=== PATIENT | female | born 1985 | race Caucasian/White ===

== ENCOUNTER 2019-12-05 09:03 | Emergency (ER) | payer OTHER ==
[2019-12-05 09:13] VITALS: RESP 18
--- NOTE | 2019-12-05 09:24 | ED ---
Fever HPI - General Chief Complaint: Fever Stated Complaint: Fever Time Seen by Provider: 12/05/19 09:03 Source: patient, EMS, RN notes reviewed Mode of arrival: EMS Limitations: no limitations - History of Present Illness Initial Comments: This is a 34-year-old female who is currently in treatment at [facility] for alcohol use disorder who is been there 5 days who started developing a fever last night with episodes of nausea vomiting and some diarrhea. She also states she has a frontal headache in her left ear bothers her somewhat she's had a no nproductive cough she does admit that she is a smoker no known exposure to covid-19 Patient have a temperature 102 this morning she did take some ibuprofen at around 8:00 it was registered as afebrile prior to arrival. No other complaints or modifying factors at this time she does state that she started going through withdrawals from alcohol she was using up to a fifth a day of Liquor. MD Complaint: fever, other - Related Data Previous Rx's Medication Instructions Recorded Azithromycin [Zithromax Z-pack] 250 mg PO DIRECTED #6 tab 12/05/19 Allergies Allergy/AdvReac Type Severity Reaction Status Date / Time Penicillins Allergy Rash/Hives Verified 12/05/19 09:14 Review of Systems ROS Statement: Those systems with pertinent positive or pertinent negative responses have been documented in the HPI. ROS Other: All systems not noted in ROS Statement are negative. Past Medical History Past Medical History: Asthma History of Any Multi-Drug Resistant Organisms: None Reported Past Surgical History: Section, Tonsillectomy Past Psychological History: Anxiety, Depression, Schizophrenia Smoking Status: Current every day smoker Past Alcohol Use History: Abuse, Daily Past Drug Use History: Cocaine General Exam - General Exam Comments Initial Comments: This a well-developed well-nourished awake alert oriented 3 female Limitations: no limitations General appearance: alert, in no apparent distress Head exam: Present: atraumatic, normocephalic, normal inspection Eye exam: Present: normal appearance, PERRL, EOMI. Absent: scleral icterus, conjunctival injection, periorbital swelling ENT exam: Present: mucous membranes moist, other (Boggy nasal mucosa bilaterally no overt drainage. Left tympanic membrane is dull with evidence of fluid behind the membrane there is tenderness to percussion over the frontal sinus region.) Neck exam: Present: normal inspection. Absent: tenderness, meningismus, lymphadenopathy Respiratory exam: Present: normal lung sounds bilaterally. Absent: respiratory distress, wheezes, rales, rhonchi, stridor Cardiovascular Exam: Present: regular rate, normal rhythm, normal heart sounds. Absent: systolic murmur, diastolic murmur, rubs, gallop, clicks GI/Abdominal exam: Present: soft, normal bowel sounds. Absent: distended, tenderness, guarding, rebound, rigid Extremities exam: Present: normal inspection, full ROM, normal capillary refill. Absent: tenderness, pedal edema, joint swelling, calf tenderness Back exam: Present: normal inspection Neurological exam: Present: alert, oriented X3, CN II-XII intact Psychiatric exam: Present: normal affect, normal mood Skin exam: Present: warm, dry, intact, normal color. Absent: rash Course Vital Signs 12/05/19 09:04 Temperature 98.2 F Pulse Rate 71 Respiratory 18 Rate Blood Pressure 109/72 O2 Sat by Pulse 99 Oximetry Medical Decision Making - Medical Decision Making I did discuss findings with the patient the presentation is consistent with a frontal sinusitis and otitis media left ear. She does state that she was tested at the facility 5 days ago and was negative for Covid-19. Patient will be placed on appropriate medication she is pen ALLERGIC. She'll be placed on azithromycin. - Lab Data Result diagrams: 12/05/19 09:57 12/05/19 09:57 Lab Results 12/05/19 12/05/19 12/05/19 Range/Units 09:30 09:35 09:57 WBC 6.3 (3.8-10.6) k/uL RBC 4.66 (3.80-5.40) m/uL Hgb 14.6 (11.4-16.0) gm/dL Hct 44.3 (34.0-46.0) % MCV 95.2 (80.0-100.0) fL MCH 31.3 (25.0-35.0) pg MCHC 32.9 (31.0-37.0) g/dL RDW 13.6 (11.5-15.5) % Plt Count 325 (150-450) k/uL Neutrophils % 60 % Lymphocytes % 29 % Monocytes % 5 % Eosinophils % 3 % Basophils % 0 % Neutrophils # 3.8 (1.3-7.7) k/uL Lymphocytes # 1.8 (1.0-4.8) k/uL Monocytes # 0.3 (0-1.0) k/uL Eosinophils # 0.2 (0-0.7) k/uL Basophils # 0.0 (0-0.2) k/uL Sodium (137-145) mmol/L Potassium (3.5-5.1) mmol/L Chloride (98-107) mmol/L Carbon Dioxide (22-30) mmol/L Anion Gap mmol/L BUN (7-17) mg/dL Creatinine (0.52-1.04) mg/dL Est GFR (CKD-EPI)AfAm (>60 ml/min/1.73 sqM) Est GFR (CKD-EPI)NonAf (>60 ml/min/1.73 sqM) Glucose (74-99) mg/dL Calcium (8.4-10.2) mg/dL Total Bilirubin (0.2-1.3) mg/dL AST (14-36) U/L ALT (4-34) U/L Alkaline Phosphatase (38-126) U/L Total Protein (6.3-8.2) g/dL Albumin (3.5-5.0) g/dL Urine Color Yellow Urine Appearance Cloudy H (Clear) Urine pH 6.5 (5.0-8.0) Ur Specific [place] 1.018 (1.001-1.035) Urine Protein Negative (Negative) Urine Glucose (UA) Negative (Negative) Urine Ketones Negative (Negative) Urine Blood Trace H (Negative) Urine Nitrite Negative (Negative) Urine Bilirubin Negative (Negative) Urine Urobilinogen <2.0 (<2.0) mg/dL Ur Leukocyte Esterase Negative (Negative) Urine RBC 1 (0-5) /hpf Urine WBC 1 (0-5) /hpf Ur Squamous Epith Cells 12 H (0-4) /hpf Urine Bacteria Rare H (None) /hpf Hyaline Casts 1 (0-2) /lpf Urine Mucus Rare H (None) /hpf Influenza Type A RNA Not Detected (Not Detectd) Influenza Type B (PCR) Not Detected (Not Detectd) 12/05/19 Range/Units 09:57 WBC (3.8-10.6) k/uL RBC (3.80-5.40) m/uL Hgb (11.4-16.0) gm/dL Hct (34.0-46.0) % MCV (80.0-100.0) fL MCH (25.0-35.0) pg MCHC (31.0-37.0) g/dL RDW (11.5-15.5) % Plt Count (150-450) k/uL Neutrophils % % Lymphocytes % % Monocytes % % Eosinophils % % Basophils % % Neutrophils # (1.3-7.7) k/uL Lymphocytes # (1.0-4.8) k/uL Monocytes # (0-1.0) k/uL Eosinophils # (0-0.7) k/uL Basophils # (0-0.2) k/uL Sodium 137 (137-145) mmol/L Potassium 5.2 H (3.5-5.1) mmol/L Chloride 105 (98-107) mmol/L Carbon Dioxide 27 (22-30) mmol/L Anion Gap 5 mmol/L BUN 19 H (7-17) mg/dL Creatinine 1.18 H (0.52-1.04) mg/dL Est GFR (CKD-EPI)AfAm 69 (>60 ml/min/1.73 sqM) Est GFR (CKD-EPI)NonAf 60 (>60 ml/min/1.73 sqM) Glucose 86 (74-99) mg/dL Calcium 9.1 (8.4-10.2) mg/dL Total Bilirubin 0.2 (0.2-1.3) mg/dL AST 24 (14-36) U/L ALT 13 (4-34) U/L Alkaline Phosphatase 51 (38-126) U/L Total Protein 6.8 (6.3-8.2) g/dL Albumin 3.7 (3.5-5.0) g/dL Urine Color Urine Appearance (Clear) Urine pH (5.0-8.0) Ur Specific [place] (1.001-1.035) Urine Protein (Negative) Urine Glucose (UA) (Negative) Urine Ketones (Negative) Urine Blood (Negative) Urine Nitrite (Negative) Urine Bilirubin (Negative) Urine Urobilinogen (<2.0) mg/dL Ur Leukocyte Esterase (Negative) Urine RBC (0-5) /hpf Urine WBC (0-5) /hpf Ur Squamous Epith Cells (0-4) /hpf Urine Bacteria (None) /hpf Hyaline Casts (0-2) /lpf Urine Mucus (None) /hpf Influenza Type A RNA (Not Detectd) Influenza Type B (PCR) (Not Detectd) - Radiology Data Radiology results: report reviewed, image reviewed Disposition Clinical Impression: Acute frontal sinusitis, Otitis media of left ear, Febrile illness, acute Disposition: HOME SELF-CARE Condition: Good Instructions (If sedation given, give patient instructions): Fever in Adults (ED), Sinusitis (ED), Ear Infection (ED) Prescriptions: Azithromycin [Zithromax Z-pack] 250 mg PO DIRECTED #6 tab Is patient prescribed a controlled substance at d/c from ED?: No Referrals: Mar Sandoval MD [Primary Care Provider] - 1-2 days
[2019-12-05 09:55] LABS: Appearance,Urine Cloudy (Clear); Bacteria,Urine Rare /hpf; Bilirubin,Urine Negative (Negative); Blood,Urine Trace (Negative); Color,Urine Yellow; Glucose,Urine (UA) Negative (Negative); Hyaline Casts,Urine 1 /lpf (0-2); Ketones,Urine Negative (Negative); Leukocyte Esterase,Urine Negative (Negative); Mucus,Urine Rare /hpf; Nitrite,Urine Negative (Negative); PH, Urine 6.5 (5.0-8.0); Protein,Urine Negative (Negative); RBC,Urine 1 /hpf (0-5); Specific Gravity,Urine 1.018 (1.001-1.035); Squamous Epithelial Cell,Urine 12 /hpf (0-4); Urobilinogen,Urine <2.0 mg/dL (<2.0); WBC,Urine 1 /hpf (0-5)
[2019-12-05 10:24] LABS: Basophils % (A) 0 %; Eosinophils # (A) 0.2 k/uL (0-0.7); Eosinophils % (A) 3 %; HCT 44.3 % (34.0-46.0); HGB 14.6 gm/dL (11.4-16.0); Lymphocytes # (A) 1.8 k/uL (1.0-4.8); Lymphocytes % (A) 29 %; MCH 31.3 pg (25.0-35.0); MCHC 32.9 g/dL (31.0-37.0); MCV 95.2 fL (80.0-100.0); Mean Platelet Volume 6.6; Monocytes # (A) 0.3 k/uL (0-1.0); Monocytes % (A) 5 %; Neutrophils # (A) 3.8 k/uL (1.3-7.7); Neutrophils % (A) 60 %; Platelet Count 325 k/uL (150-450); RBC 4.66 m/uL (3.80-5.40); RDW 13.6 % (11.5-15.5); WBC 6.3 k/uL (3.8-10.6)
--- NOTE | 2019-12-05 10:30 | XR ---
EXAMINATION TYPE: XR chest 2V DATE OF EXAM: 12/05/2019 COMPARISON: NONE HISTORY: Fever TECHNIQUE: Frontal and lateral views of the chest are obtained. FINDINGS: There is no focal air space opacity, pleural effusion, or pneumothorax seen. The cardiac silhouette size is within normal limits. The osseous structures are intact. IMPRESSION: No acute cardiopulmonary process.
[2019-12-05 10:34] LABS: Albumin 3.7 g/dL (3.5-5.0); Calcium 9.1 mg/dL (8.4-10.2); Potassium 5.2 mmol/L (3.5-5.1); Total Bilirubin 0.2 mg/dL (0.2-1.3); Total Protein 6.8 g/dL (6.3-8.2)
[2019-12-05] MEDS ORDERED: AZITHROMYCIN 500 MG TAB PO STA (10:47)
[2019-12-05 10:58] VITALS: BP 117/86; PULSE 77; TEMP 98
== END 2019-12-05 11:21 | disposition home or self-care (01) ==
LOC: EC 09:03
DX: H66.92 Otitis media, unspecified, left ear (principal); J01.10 Acute frontal sinusitis, unspecified; Z20.828 Contact with and (suspected) exposure to other viral communicable diseases; F17.200 Nicotine dependence, unspecified, uncomplicated; Z88.0 Allergy status to penicillin
CPT/HCPCS: 36415; 80053; 85025; 81001; 87040; 87502; 71046; 99284; U0003

== ENCOUNTER → 2020-02-05 | Outpatient (CLI) | payer OTHER ==
--- NOTE | 2020-02-05 14:11 | CT ---
EXAMINATION TYPE: CT brain wo con DATE OF EXAM: 02/05/2020 COMPARISON: NONE HISTORY: Left ear pain, recurrent infections. Hearing loss. CT DLP: 1036 mGycm Automated exposure control for dose reduction was used. FINDINGS: Central structures are midline. There is no evidence hydrocephalus. No acute focal lesion, mass effec t or midline shift is seen. I do not see evidence of intracranial blood. Visualized portions of the paranasal sinuses and mastoids are clear. Imaging through the middle ears shows no definite abnormality the ossicles are intact. IMPRESSION: NO ACUTE INTRACRANIAL ABNORMALITY.
== END | disposition home or self-care (01) ==
LOC: RADCTMAIN 13:01
PROVIDERS: ATTEND Family Medicine
DX: H92.02 Otalgia, left ear (principal); Z86.69 Personal history of other diseases of the nervous system and sense organs
CPT/HCPCS: 70450

== ENCOUNTER 2020-09-30 15:01 | Emergency (ER) | payer OTHER ==
[2020-09-30 15:07] VITALS: BP 141/77; PULSE 89; RESP 18; TEMP 97.6
[2020-09-30] MEDS ORDERED: KETOROLAC 15 MG/ML 1 ML VIAL IM STA (15:36)
--- NOTE | 2020-09-30 16:06 | XR ---
RESULT: HISTORY: fall x 3 days ago, pain TECHNIQUE: AP view of the pelvis. 2 views of the left hip. COMPARISON: None. FINDINGS: There is no acute fracture or dislocation of the pelvis or left hip. The visualized joint spaces are preserved. Overlying IUD seen. IMPRESSION: No acute osseous abnormality.
--- NOTE | 2020-09-30 16:07 | XR ---
Result: History: Low back pain status post fall. Comparison: None available. Technique: 3 views of the lumbar spine. Findings: The bone mineralization is normal. Images of the lumbar spine demonstrate 5 lumbar-type vertebrae. There is no acute fracture or sublux ation. The vertebral body heights are preserved throughout the imaged lumbar spine. The vertebral e lements are in anatomic alignment. The disc heights are maintained. Impression: No significant osseous abnormality.
--- NOTE | 2020-09-30 16:15 | ED ---
Lower Extremity Injury HPI - General Source: patient Mode of arrival: ambulatory Limitations: no limitations <Juani Calderon - Last Filed: 09/30/20 22:30> <Valeri Gross - Last Filed: 10/02/20 14:53> - General Chief Complaint: Extremity Injury, Lower Stated Complaint: Lt Hip Pain Time Seen by Provider: 09/30/20 15:17 - History of Present Illness Initial Comments: Patient is a 35-year-old female presenting to the emergency Department with complaints of left hip and low back pain for the past 3 days. Patient states she had a trip and fall and landed on her left hip. She states over the past 3 days she's been having increasing pain in her left low back. She states it hurts to sit. She denies any previous surgeries of these areas. She denies her being on blood thinners. She denies being . She has no further complaints at this time. (Juani Calderon) - Related Data Previous Rx's Medication Instructions Recorded Azithromycin [Zithromax Z-pack] 250 mg PO DIRECTED #6 tab 12/05/19 Cyclobenzaprine [Flexeril] 5 mg PO BID #10 tablet 09/30/20 Allergies Allergy/AdvReac Type Severity Reaction Status Date / Time Penicillins Allergy Rash/Hives Verified 09/30/20 15:07 Review of Systems ROS Other: All systems not noted in ROS Statement are negative. <Juani Calderon - Last Filed: 09/30/20 22:30> ROS Other: All systems not noted in ROS Statement are negative. <Valeri Gross - Last Filed: 10/02/20 14:53> ROS Statement: Those systems with pertinent positive or pertinent negative responses have been documented in the HPI. Past Medical History Past Medical History: Asthma History of Any Multi-Drug Resistant Organisms: None Reported Past Surgical History: Section, Tonsillectomy Past Psychological History: Anxiety, Depression, Schizophrenia Smoking Status: Former smoker Past Alcohol Use History: None Reported Past Drug Use History: Cocaine <Juani Calderon - Last Filed: 09/30/20 22:30> General Exam Limitations: no limitations <Juani Calderon - Last Filed: 09/30/20 22:30> - General Exam Comments Initial Comments: GENERAL: Patient is well-developed and well-nourished. Patient is nontoxic and in no acute distress. HEAD: Atraumatic, normocephalic. EYES: Pupils equal round and reactive to light, extraocular movements intact, sclera anicteric, conjunctiva are normal. Eyelids were unremarkable. ENT: TMs normal, nares patent, oropharynx clear without exudates. Moist mucous membranes. NECK: Normal range of motion, supple without lymphadenopathy or JVD. LUNGS: Unlabored respirations. Breath sounds clear to auscultation bilaterally and equal. No wheezes rales or rhonchi. HEART: Regular rate and rhythm without murmurs, rubs or gallops. ABDOMEN: Soft, nontender, normoactive bowel sounds. No guarding, no rebound. No masses appreciated. : Deferred MUSCULOSKELETAL: Patient has increased pain with trunk flexion and hip flexion, she does have full active range of motion although. She is neurovascular intact. Sensation is equal bilateral lower extremities. No clubbing or cyanosis. NEUROLOGICAL: Patient is alert and oriented x 3. Motor and sensory are also intact. Cranial nerves II through XII grossly intact. Symmetrical smile. Normal speech, normal gait. PSYCH: Normal mood, normal affect. SKIN: Warm, Dry, normal turgor, no rashes or lesions noted. (Juani Calderon) Course Vital Signs 09/30/20 15:04 Temperature 97.6 F Pulse Rate 89 Respiratory 18 Rate Blood Pressure 141/77 O2 Sat by Pulse 96 Oximetry Medical Decision Making <Juani Calderon - Last Filed: 09/30/20 22:30> <Valeri Gross - Last Filed: 10/02/20 14:53> - Medical Decision Making Patient is a 35-year-old female here for left hip pain after falling 3 days ago. X-rays of the left hip, pelvis, low back revealed no acute fractures dislocations. I discussed with patient this is most likely a contusion with some muscle spasms. I did give her Toradol here today. I will give her prescription for some muscle relaxers and recommended Tylenol and Motrin as well. Patient is stable for discharge. Patient is in agreement with this plan of care. Return parameters were discussed with the patient and they verbalized understanding. Case discussed with Dr. Gross. (Juani Calderon) I was available for consultation in the emergency department. The history and physical exam were done by the midlevel provider. I was consulted for this patients care. I reviewed the case with the midlevel provider and based on their presentation of the patient, I agree with the assessment, medical decision making and plan of care as documented. Chart was dictated using [employer] dictation software. Attempts were made to correct any dictation errors however some typographical errors may persist. Patient was seen during a national state of emergency due to the Covid-19 pandemic. (Valeri Gross) Disposition Is patient prescribed a controlled substance at d/c from ED?: No <Juani Calderon - Last Filed: 09/30/20 22:30> <Valeri Gross - Last Filed: 10/02/20 14:53> Clinical Impression: Contusion of hip, left, Spasm of muscle of lower back Disposition: HOME SELF-CARE Condition: Stable Instructions (If sedation given, give patient instructions): Muscle Spasm (ED) Additional Instructions: Please return to the Emergency Department if symptoms worsen or any other concerns. Command heat to the area, Tylenol and/or Motrin alternating. May take muscle relaxer at night. Follow-up with your regular doctor. Prescriptions: Cyclobenzaprine [Flexeril] 5 mg PO BID #10 tablet Referrals: [facility] [Primary Care Provider] - 1-2 days
== END 2020-09-30 16:35 | disposition home or self-care (01) ==
LOC: EC 15:01
DX: S70.02XA Contusion of left hip, initial encounter (principal); M62.830 Muscle spasm of back; Z87.891 Personal history of nicotine dependence; F41.9 Anxiety disorder, unspecified; F32.9 Major depressive disorder, single episode, unspecified; F20.9 Schizophrenia, unspecified; J45.909 Unspecified asthma, uncomplicated; W01.0XXA Fall on same level from slipping, tripping and stumbling without subsequent striking against object, initial encounter
CPT/HCPCS: 72100; 73502; 99284; 96372; J1885

== ENCOUNTER 2020-10-06 02:09 | Emergency (ER) | payer OTHER ==
[2020-10-06 02:23] VITALS: BP 109/73; PULSE 77; RESP 16; TEMP 98.6
[2020-10-06] MEDS ORDERED: Acetaminophen-Codeine 300-30mg TAB PO STA (02:50)
[2020-10-06] MEDS ORDERED: ACET/COD 300 MG/30 MG STARTER PACK 6 TAB BTL PO STA (02:50)
--- NOTE | 2020-10-06 02:52 | ED ---
General Adult HPI - General Chief complaint: Recheck/Abnormal Lab/Rx Stated complaint: Recheck left hip Time Seen by Provider: 10/06/20 02:30 Source: patient, RN notes reviewed, old records reviewed Mode of arrival: ambulatory Limitations: no limitations - History of Present Illness Initial comments: This is a 35-year-old female DF status post fall fall week ago. Patient has severe left back pain left leg pain left hip pain. Patient is chronic pain from prior fall. Patient states the pain is currently unable to work. Patient here for work note -: days(s) Location: pelvis Radiation: back Severity scale (1-10): 7 Quality: aching Consistency: constant Improves with: none Worsens with: none Associated Symptoms: denies other symptoms Treatments Prior to Arrival: none - Related Data Previous Rx's Medication Instructions Recorded Azithromycin [Zithromax Z-pack] 250 mg PO DIRECTED #6 tab 12/05/19 Cyclobenzaprine [Flexeril] 5 mg PO BID #10 tablet 09/30/20 Allergies Allergy/AdvReac Type Severity Reaction Status Date / Time Penicillins Allergy Rash/Hives Verified 10/06/20 02:20 Review of Systems ROS Statement: Those systems with pertinent positive or pertinent negative responses have been documented in the HPI. ROS Other: All systems not noted in ROS Statement are negative. Past Medical History Past Medical History: Asthma History of Any Multi-Drug Resistant Organisms: None Reported Past Surgical History: Section, Tonsillectomy Past Psychological History: Anxiety, Depression, Schizophrenia Smoking Status: Former smoker Past Alcohol Use History: None Reported Past Drug Use History: Cocaine General Exam Limitations: no limitations General appearance: alert, in no apparent distress Head exam: Present: atraumatic, normocephalic, normal inspection Eye exam: Present: normal appearance, PERRL, EOMI. Absent: scleral icterus, conjunctival injection, periorbital swelling ENT exam: Present: normal exam, mucous membranes moist Neck exam: Present: normal inspection. Absent: tenderness, meningismus, lymphadenopathy Respiratory exam: Present: normal lung sounds bilaterally. Absent: respiratory distress, wheezes, rales, rhonchi, stridor Cardiovascular Exam: Present: regular rate, normal rhythm, normal heart sounds. Absent: systolic murmur, diastolic murmur, rubs, gallop, clicks GI/Abdominal exam: Present: soft, normal bowel sounds. Absent: distended, tenderness, guarding, rebound, rigid Extremities exam: Present: normal inspection, full ROM, normal capillary refill. Absent: tenderness, pedal edema, joint swelling, calf tenderness Back exam: Present: normal inspection Neurological exam: Present: alert, oriented X3, CN II-XII intact Psychiatric exam: Present: normal affect, normal mood Skin exam: Present: warm, dry, intact, normal color. Absent: rash Course Vital Signs 10/06/20 02:20 Temperature 98.6 F Pulse Rate 77 Respiratory 16 Rate Blood Pressure 109/73 O2 Sat by Pulse 100 Oximetry - Reevaluation(s) Reevaluation #1: 10/06/20 02:51 Medical record is reviewed Reevaluation #2: 10/06/20 02:51 Prior ER visit is reviewed Reevaluation #3: 10/06/20 02:51 Patient given a work note and pain control Medical Decision Making - Medical Decision Making 35 female status post trip and fall, patient is work note pain meds. Patient can be discharged home Disposition Clinical Impression: Contusion of hip, left, Encounter for medication refill Disposition: HOME SELF-CARE Condition: Good Instructions (If sedation given, give patient instructions): Contusion in Adults (ED) Is patient prescribed a controlled substance at d/c from ED?: No Referrals: [facility] [Primary Care Provider] - 1-2 days
== END 2020-10-06 03:15 | disposition home or self-care (01) ==
LOC: EC 02:09
DX: S70.02XA Contusion of left hip, initial encounter (principal); Z76.0 Encounter for issue of repeat prescription; M54.9 Dorsalgia, unspecified; F41.9 Anxiety disorder, unspecified; F32.9 Major depressive disorder, single episode, unspecified; F20.9 Schizophrenia, unspecified; J45.909 Unspecified asthma, uncomplicated; Z87.891 Personal history of nicotine dependence; Z88.0 Allergy status to penicillin; W01.0XXA Fall on same level from slipping, tripping and stumbling without subsequent striking against object, initial encounter
CPT/HCPCS: 99283

== ENCOUNTER 2024-12-29 10:18 | Observation (INO) | payer BC, OTHER ==
[2024-12-29] MEDS: NITROGLYCERIN SL TABS 0.4 MG TAB SUBLINGUAL STA (10:48)
[2024-12-29] MEDS: KETOROLAC 15 MG/ML 1 ML VIAL IVP STA ×2 (10:49→13:22)
--- NOTE | 2024-12-29 11:07 | XR ---
EXAMINATION TYPE: XR chest 2V DATE OF EXAM: 12/29/2024 11:04 AM COMPARISON: 09/16/2022 CLINICAL INDICATION: Female, 39 years old with history of Chest Pain, TECHNIQUE: XR chest 2V view(s) obtained. FINDINGS: The heart size is normal. The pulmonary vasculature is normal. The lungs are clear. IMPRESSION: 1. No acute pulmonary process. [facility], , 12/29/2024 11:05 AM
[2024-12-29 11:10] LABS: Basophils # (A) 0.06 10*3/uL (0.00-0.10); Basophils % (A) 0.7 %; Eosinophils # (A) 0.12 10*3/uL (0.04-0.35); Eosinophils % (A) 1.5 %; HCT 41.5 % (37.2-46.3); HGB 13.7 g/dL (12.0-15.0); Lymphocytes # (A) 2.76 10*3/uL (0.90-5.00); Lymphocytes % (A) 34.4 %; MCH 29.4 pg (27.0-32.0); MCV 89.1 fL (80.0-97.0); Mean Platelet Volume 9.2 fL (9.5-12.2); Monocytes % (A) 6.2 %; Neutrophils # (A) 4.56 10*3/uL (1.80-7.70); Neutrophils % (A) 56.8 %; Platelet Count 367 10*3/uL (140-440); RBC 4.66 10*6/uL (4.10-5.20); RDW 13.2 % (11.5-14.5); WBC 8.03 10*3/uL (4.50-10.00)
[2024-12-29 11:19] LABS: ALT 38 U/L (4-34); AST 31 U/L (14-36); African American GFR (CKD) >90 (>60 ml/min/1.73 sqM); Albumin 3.9 g/dL (3.5-5.0); Alkaline Phosphatase 124 U/L (38-126); Anion Gap 8 mmol/L; Blood Urea Nitrogen 14 mg/dL (7-17); Calcium 9.7 mg/dL (8.4-10.2); Carbon Dioxide 27 mmol/L (22-30); Chloride 104 mmol/L (98-107); Glucose 97 mg/dL (74-99); Magnesium 1.7 mg/dL (1.6-2.3); Non-African American GFR(CKD) 90 (>60 ml/min/1.73 sqM); Potassium 4.5 mmol/L (3.5-5.1); Sodium 139 mmol/L (137-145); Total Bilirubin 0.3 mg/dL (0.2-1.3); Total Protein 7.2 g/dL (6.3-8.2)
[2024-12-29 11:27] LABS: INR 0.9 (<1.2); NT-Pro-B-Type Natriuretic Pept 146 pg/mL; Partial Thromboplastin Time 25.5 sec (22.0-30.0); Prothrombin Time 10.1 sec (10.0-12.5)
--- NOTE | 2024-12-29 12:25 | ED ---
Chest Pain HPI - General Chief Complaint: Chest Pain Stated Complaint: Chest Pain Time Seen by Provider: 12/29/24 10:21 Source: patient, EMS, RN notes reviewed Mode of arrival: EMS Limitations: no limitations - History of Present Illness Initial Comments: 39-year-old female presents emerged part via EMS from [place] as she has been poorly there with chief complaint of chest pain. Patient states that she has been having some ongoing chest pain which seem to worsen today with exertional symptoms. Patient states she is scheduled see cardiology tomorrow she has left-sided chest pain into the back. Patient states she has symptoms that radiate down her left arm she does admit that she states that she had a prior heart attack with no stent placement had a prior heart cath Desmet hypertension hyperlipidemia and is medication noncompliant. Patient states she is taking current psychiatric medications. Denies any nausea vomiting denies fevers or chills does with mild shortness of breath. - Related Data Home Medications Medication Instructions Recorded Confirmed Aripiprazole Lauroxil [Aristada] 882 mg IM Q28D 09/16/22 09/16/22 Atorvastatin [Lipitor] 10 mg PO HS 09/16/22 09/16/22 Benztropine Mesylate [Cogentin] 1 mg PO BID PRN 09/16/22 09/16/22 Butalb/Acetaminophen/Caffeine 1 tab PO DAILY PRN 09/16/22 09/16/22 [Ukeehj-Ukuqbllf-Enmr 50-325-40] Fluticasone Nasal [place] [Flonase 1 spray EA NOSTRIL DAILY 09/16/22 09/16/22 Nas[place]] Ibuprofen [Motrin] 600 mg PO BID PRN 09/16/22 09/16/22 Loratadine [Claritin] 10 mg PO DAILY 09/16/22 09/16/22 Montelukast [Singulair] 10 mg PO HS 09/16/22 09/16/22 Naltrexone Microspheres [Vivitrol] 380 mg IM Q28D 09/16/22 09/16/22 Sertraline [Zoloft] 200 mg PO DAILY 09/16/22 09/16/22 busPIRone HCL [Buspar] 30 mg PO BID 09/16/22 09/16/22 lamoTRIgine [LaMICtal] 100 mg PO BID 09/16/22 09/16/22 traZODone HCL [Desyrel] 25 mg PO HS 09/16/22 09/16/22 Allergies Allergy/AdvReac Type Severity Reaction Status Date / Time Penicillins Allergy Rash/Hives/throat Verified 12/29/24 10:24 swelling Review of Systems ROS Statement: Those systems with pertinent positive or pertinent negative responses have been documented in the HPI. ROS Other: All systems not noted in ROS Statement are negative. EKG Findings - EKG Comments: EKG Findings:: EKG performed at 10: 24 sinus rhythm rate of 66 PA 160 QRS 86 QT/QTc 3 9/413 inverted T wave in lead III. - EKG Results: EKG: interpreted by [facility] Past Medical History Past Medical History: Asthma, Hyperlipidemia, Hypertension, Myocardial Infarction ([place]) Additional Past Medical History / Comment(s): heart murmur at . History of Any Multi-Drug Resistant Organisms: None Reported Past Surgical History: Section, Hysterectomy, Tonsillectomy Additional Past Surgical History / Comment(s): complete hysterectomy Past Psychological History: Anxiety, Depression, Schizophrenia Smoking Status: Former smoker Past Alcohol Use History: None Reported Past Drug Use History: Cocaine General Exam Limitations: no limitations General appearance: alert, in no apparent distress Head exam: Present: atraumatic, normocephalic, normal inspection Eye exam: Present: normal appearance, PERRL, EOMI. Absent: scleral icterus, conjunctival injection, periorbital swelling ENT exam: Present: normal exam, normal oropharynx, mucous membranes moist Neck exam: Present: normal inspection, full ROM. Absent: tenderness, meningismus, lymphadenopathy Respiratory exam: Present: normal lung sounds bilaterally. Absent: respiratory distress, wheezes, rales, rhonchi, stridor Cardiovascular Exam: Present: regular rate, normal rhythm, normal heart sounds. Absent: systolic murmur, diastolic murmur, rubs, gallop, clicks GI/Abdominal exam: Present: soft, normal bowel sounds. Absent: distended, tenderness, guarding, rebound, rigid Extremities exam: Present: pedal edema Neurological exam: Present: alert Skin exam: Present: warm, dry, intact, normal color. Absent: rash Course Vital Signs 12/29/24 12/29/24 10:19 13:27 Temperature 98.0 F Pulse Rate 68 72 Respiratory 20 20 Rate Blood Pressure 150/100 122/62 O2 Sat by Pulse 99 100 Oximetry Chest Pain MDM - MDM Was pt. sent in by a medical professional or institution (, [facility], IT HELP DESK ASSOCIATE, urgent care, hospital, or [place] health care facility...) When possible be specific @ -No Did you speak to anyone other than the patient for history (EMS, parent, family, police, friend...)? What history was obtained from this source @ -No Did you review nursing and triage notes (agree or disagree)? Why? @ -I reviewed and agree with nursing and triage notes Were old charts reviewed (outside hosp., previous admission, EMS record, old EKG, old radiological studies, urgent care reports/EKG's, [place] health care facility records)? Report findings @ -No old charts were reviewed Differential Diagnosis (chest pain, altered mental status, abdominal pain women, abdominal pain men, vaginal bleeding, weakness, fever, dyspnea, syncope, headache, dizziness, GI bleed, back pain, seizure, CVA, palpatations, mental health, musculoskeletal)? @ -[Differential Chest Pain: Stable Angina, Unstable Angina, STEMI, NSTEMI Aortic Dissection, Pneumothorax, Musculoskeletal, Esophageal Spasm GERD, Cholecystitis, Pancreatitis, Zoster, this is not meant to be an all-inclusive list. EKG interpreted by me (3pts min.). @ -As above X-rays interpreted by me (1pt min.). @ -Chest x-ray shows no acute cardiopulmonary process. CT interpreted by me (1pt min.). @ -CT of the chest negative for PE. U/S interpreted by me (1pt. min.). @ -None done What testing was considered but not performed or refused? (CT, X-rays, U/S, labs)? Why? @ -None What meds were considered but not given or refused? Why? @ -None Did you discuss the management of the patient with other professionals (professionals i.e. , [facility], IT HELP DESK ASSOCIATE, lab, RT, psych nurse, social work professor, manager fund, teacher, ground defence officer, correctional casework specialist)? Give summary @ - Sheet for admission Was smoking cessation discussed for >3mins.? @ -No Was critical care preformed (if so, how long)? @ -No Were there social determinants of health that impacted care today? How? (Homelessness, low income, unemployed, alcoholism, drug addiction, transportation, low edu. Level, literacy, decrease access to med. care, skilled nursing, rehab)? @ -No Was there de-escalation of care discussed even if they declined (Discuss DNR or withdrawal of care, Hospice)? DNR status @ -No What co-morbidities impacted this encounter? (DM, HTN, Smoking, COPD, CAD, Cancer, CVA, ARF, Chemo, Hep., AIDS, mental health diagnosis, sleep apnea, morbid obesity)? @ -CAD hypertension hyperlipidemia Was patient admitted / discharged? Hospital course, mention meds given and route, prescriptions, significant lab abnormalities, going to OR and other pertinent info. @ -Admitted patient did have increasing chest pain, had relief after nitro. Patient had negative labs, chest x-ray and CT patient will be admitted for cardiac rule out. Undiagnosed new problem with uncertain prognosis? @ -No Drug Therapy requiring intensive monitoring for toxicity (Heparin, Nitro, Insulin, Cardizem)? @ -No Were any procedures done? @ -No Diagnosis/symptom? @ -Chest pain Acute, or Chronic, or Acute on Chronic? @ -Acute Uncomplicated (without systemic symptoms) or Complicated (systemic symptoms)? @ -Complicated Side effects of treatment? @ -No Exacerbation, Progression, or Severe Exacerbation? @ -No Poses a threat to life or bodily function? How? (Chest pain, [place], [place], pneumonia, PE, COPD, DKA, ARF, appy, cholecystitis, CVA, Diverticulitis, Homicidal, Suicidal, threat to staff... and all critical care pts) @ -Yes risk to cardiac function Disposition Clinical Impression: Chest pain Disposition: ADMITTED IP TO THIS HOSP Condition: Fair Referrals: None,Stated [REFERRING] - 1-2 days Time of Disposition: 14:23
[2024-12-29] MEDS: NITROGLYCERIN OINT 1 INCH/GM PACKET TOPICAL STA (13:23)
--- NOTE | 2024-12-29 14:11 | CT ---
EXAMINATION TYPE: CT chest angio for PE DATE OF EXAM: 12/29/2024 12:44 PM COMPARISON: None. CLINICAL INDICATION: Female, 39 years old with history of chest pain, CHEST PAIN XFEW MONTHS, TECHNIQUE: CT of the chest is performed on a spiral scan at 2 mm thick sections. Study is performed with intravenous contrast timed for evaluation for pulmonary embolism. This will limit additional po rtions of the evaluation. 10mm MIP images reconstructed by the technologist are reviewed on the comp uter in the coronal and sagittal planes. Contrast used:100ml mL of Isovue 370 with IV Contrast, (none if empty) Oral contrast used: (none if empty) CT DLP: 991.6 mGycm, Automated exposure control for dose reduction was used. FINDINGS: No persistent filling defects are evident to suggest an acute pulmonary embolism. No mediastinal or hilar adenopathy enlarged by CT criteria is evident. The ascending aorta diameter at the level of the main pulmonary artery is 2.9 cm. The main pulmonary artery diameter at the bifurcation is 2.2 cm. Lung windows are clear. No significant coronary artery calcifications. Limited CT sections were through the upper abdomen. Upper abdomen appears unremarkable. IMPRESSION: 1. No acute pulmonary embolism. 2. No acute pulmonary process. [facility], , 12/29/2024 2:09 PM
[2024-12-29] MEDS ORDERED: NITROGLYCERIN SL TABS 0.4 MG TAB SUBLINGUAL PRN (14:23)
[2024-12-29] MEDS: ACETAMINOPHEN TAB 325 MG TAB PO PRN (23:02)
[2024-12-29] MEDS: BENZTROPINE MESYLATE 1 MG TAB PO ONE (23:03)
[2024-12-29] MEDS: GABAPENTIN 400 MG CAP PO ONE (23:03)
[2024-12-29] MEDS: lamoTRIgine 100 MG TAB PO ONE (23:03)
[2024-12-29] MEDS: busPIRone HCl 10 MG TAB PO ONE (23:03)
--- NOTE | 2024-12-30 07:26 | P.HPIM ---
History of Present Illness This is a pleasant with past medical history of depression and schizophrenia and anxiety hypertension and hyperlipidemia Presents because of chest pain and little shortness of breath and swelling in the feet as she explains Chest pain is about 5/10 below her left breast going to the back and the area of the left shoulder blade. Feels like shooting pain at times and sometimes dull Pain increased with walking no precipitating factors no coughing no significant dyspnea, but associated with some numbness in her left hand and fingers, she relates her numbness to the chest pain She denies any other GI/ symptom, no dizziness no headache no weakness or numbness. Walking is fine She wants pain medication She says she quit smoking about 5 years ago and she denies alcohol or illicit drugs Vitals and labs were unremarkable open 3 sets of troponin less than 0.012. Also CBC BMP and LFT. D-dimer was elevated 0.72. CTA of the chest was negative for acute pulmonary process and negative for pulmonary embolism chest x-ray showed no acute process and EKG showing sinus rhythm at 66. Patient started on aspirin 325 mg admitted with cardiology consultation Review of Systems Review of systems CONSTITUTIONAL: No fever, no malaise, no fatigue. HEENT: No recent visual problems or hearing problems. Denied any sore throat. CARDIOVASCULAR: No orthopnea, PND, no palpitations, no syncope. PULMONARY: No shortness of breath, no cough, no hemoptysis. GASTROINTESTINAL: No diarrhea, no nausea, no vomiting, no abdominal pain. Normoactive bowel sounds. NEUROLOGICAL: No headaches, no weakness, no numbness. HEMATOLOGICAL: Denies any bleeding or petechiae. GENITOURINARY: Denies any burning micturition, frequency, or urgency. MUSCULOSKELETAL/RHEUMATOLOGICAL: Denies any joint pain, swelling, or any muscle pain. ENDOCRINE: Denies any polyuria or polydipsia. Past Medical History Past Medical History: Asthma, Hyperlipidemia, Hypertension, Myocardial Infarction ([place]) Additional Past Medical History / Comment(s): heart murmur at . History of Any Multi-Drug Resistant Organisms: None Reported Past Surgical History: Section, Hysterectomy, Tonsillectomy Additional Past Surgical History / Comment(s): complete hysterectomy Past Psychological History: Anxiety, Depression, Schizophrenia Smoking Status: Former smoker Past Alcohol Use History: None Reported Past Drug Use History: Cocaine Medications and Allergies Home Medications Medication Instructions Recorded Confirmed Type Benztropine Mesylate [Cogentin] 1 mg PO BID 09/16/22 12/29/24 History Sertraline [Zoloft] 200 mg PO DAILY 09/16/22 12/29/24 History busPIRone HCL [Buspar] 30 mg PO BID 09/16/22 12/29/24 History lamoTRIgine [LaMICtal] 100 mg PO BID 09/16/22 12/29/24 History Aripiprazole Lauroxil [Aristada] 441 mg IM Q28D 12/29/24 12/29/24 History Gabapentin [Neurontin] 400 mg PO TID PRN 12/29/24 12/29/24 History Ibuprofen [Motrin] 800 mg PO Q6H PRN 12/29/24 12/29/24 History estradioL [estradioL (Once Weekly) 1 patch TRANSDERM TH 12/29/24 12/29/24 History 0.025 mg Patch] Allergies Allergy/AdvReac Type Severity Reaction Status Date / Time Penicillins Allergy Rash/Hives/throat Verified 12/29/24 15:26 swelling amlodipine [From [facility]] AdvReac headache Verified 12/29/24 15:38 Physical Exam Vitals: Vital Signs Temp Pulse Resp BP Pulse Ox 12/29/24 18:19 65 18 106/60 98 12/29/24 13:27 72 20 122/62 100 12/29/24 10:19 98.0 F 68 20 150/100 99 Intake and Output 12/29/24 12/29/24 12/29/24 06:59 14:59 22:59 Other: Weight 133.81 kg GENERAL: The patient is alert and oriented x3, not in any acute distress. Well developed, well nourished. HEENT: Pupils are round and equally reacting to light. EOMI. No scleral icterus. No conjunctival pallor. Normocephalic, atraumatic. No pharyngeal erythema. No thyromegaly. CARDIOVASCULAR: S1 and S2 present. No murmurs, rubs, or gallops. PULMONARY: Chest is clear to auscultation, no wheezing , no crackles. ABDOMEN: Soft, nontender, nondistended, normoactive bowel sounds. No palpable o rganomegaly. MUSCULOSKELETAL: No joint swelling or deformity. EXTREMITIES: No cyanosis, clubbing, or pedal edema. NEUROLOGICAL: Gross neurological examination did not reveal any focal deficits. SKIN: No rashes. no petechiae. Results CBC & Chem 7: 12/29/24 10:42 12/29/24 10:42 Labs: Abnormal Lab Results - Last 24 Hours (Table) 12/29/24 12/29/24 12/29/24 Range/Units 10:42 10:42 10:42 MPV 9.2 L (9.5-12.2) fL D-Dimer 0.72 H (<0.60) mg/L FEU ALT 38 H (4-34) U/L Assessment and Plan Assessment: Chest pain, could be musculoskeletal as it is associated with some tenderness rule out cardiac causes Anxiety depression schizophrenia hypertension Hyperlipidemia Asthma, not an active issue Plan: Continue with aspirin Cardiology team consult Labs and medication were reviewed.. Continue same treatment. Continue with symptomatic treatment. Resume home medication. Monitor labs and vitals. DVT and GI prophylaxis. Further recommendations as per clinical course of the patient DVT prophylaxis: Subcutaneous heparin GI Prophylaxis: Pepcid PT/OT: Pending Prognosis is guarded
[2024-12-30] MEDS ORDERED: ARIPIPRAZOLE LAUROXIL 441 MG/1.6 ML IM SCH (07:30)
[2024-12-30 08:11] LABS: African American GFR (CKD) >90 (>60 ml/min/1.73 sqM); Anion Gap 7 mmol/L; Blood Urea Nitrogen 14 mg/dL (7-17); Calcium 9.4 mg/dL (8.4-10.2); Carbon Dioxide 25 mmol/L (22-30); Chloride 107 mmol/L (98-107); Glucose 106 mg/dL (74-99); Non-African American GFR(CKD) >90 (>60 ml/min/1.73 sqM); Potassium 4.4 mmol/L (3.5-5.1); Sodium 139 mmol/L (137-145)
[2024-12-30 08:13] LABS: HCG,Qualitative Serum Not Detected
[2024-12-30 08:14] LABS: Chol/HDL Ratio 5.69 Ratio; LDL Cholesterol,Calculated 155.8 mg/dL (0.0-131.0)
[2024-12-30] MEDS ORDERED: DOBUTamine DRIP for NUC MED 500 MG in DEXTROSE/WATER 1 250ML.BAG IV PRN (08:58)
--- NOTE | 2024-12-30 09:02 | P.CRDCN ---
History of Present Illness Consult date: 12/30/24 History of present illness: HISTORY OF PRESENTING ILLNESS: 39-year-old with history of obesity, prior history of alcohol use, and smoking. Presents to the hospital because of substernal chest pressure that is coming on and off, sometimes with exertion. She was also concerned of some increased swelling and some weight gain. She reports her swelling has improved since she received Lasix in the hospital. admission BP 100/75, admission labs were nonrevealing, D-dimer was elevated for which CT chest angiogram was done which did not show any acute PE or cardiopulmonary process, tropes were negative NT-proBNP 146, LDL 155, TG 173, cholesterol 231 EKG does not show any significant ST-T wave changes concerning for ischemia. Normal sinus rhythm REVIEW OF SYSTEMS: 14 point review of system is negative except what is mentioned above in HPI. PHYSICAL EXAMINATION: Neck: Brisk carotid upstroke, no jugular venous distention. Lungs: Clear to auscultation. Heart: Regular rate and rhythm, S1-S2, , no murmur or rub. Abdomen: Soft nontender, positive bowel sounds. Extremities: No edema, intact distal pulses. Neuro: Alert, oritented, no focal deficits. Detailed neuro exam was not performed. 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 She cannot walk on treadmill because of back injury Start Lipitor 20 mg daily If echo and stress test are nonrevealing, she can be discharged from cardiac standpoint Recommend outpatient follow-up Recommend weight loss diet and exercise Recommend outpatient sleep apnea evaluation. Cullen Boykin MD, FACC, RPVI Thank you for allowing [facility] to participate in this patient's care. Feel free to reach out in case of any followup questions. Past Medical History Past Medical History: Asthma, Hyperlipidemia, Hypertension, Myocardial Infarction ([place]) Additional Past Medical History / Comment(s): heart murmur at . History of Any Multi-Drug Resistant Organisms: None Reported Past Surgical History: Section, Hysterectomy, Tonsillectomy Additional Past Surgical History / Comment(s): complete hysterectomy Past Psychological History: Anxiety, Depression, Schizophrenia Smoking Status: Former smoker Past Alcohol Use History: None Reported Past Drug Use History: Cocaine Medications and Allergies Home Medications Medication Instructions Recorded Confirmed Type Benztropine Mesylate [Cogentin] 1 mg PO BID 09/16/22 12/29/24 History Sertraline [Zoloft] 200 mg PO DAILY 09/16/22 12/29/24 History busPIRone HCL [Buspar] 30 mg PO BID 09/16/22 12/29/24 History lamoTRIgine [LaMICtal] 100 mg PO BID 09/16/22 12/29/24 History Aripiprazole Lauroxil [Aristada] 441 mg IM Q28D 12/29/24 12/29/24 History Gabapentin [Neurontin] 400 mg PO TID PRN 12/29/24 12/29/24 History Ibuprofen [Motrin] 800 mg PO Q6H PRN 12/29/24 12/29/24 History estradioL [estradioL (Once Weekly) 1 patch TRANSDERM TH 12/29/24 12/29/24 History 0.025 mg Patch] Allergies Allergy/AdvReac Type Severity Reaction Status Date / Time Penicillins Allergy Rash/Hives/throat Verified 12/29/24 15:26 swelling amlodipine [From [facility]] AdvReac headache Verified 12/29/24 15:38 Physical Exam Vitals: Vital Signs Temp Pulse Pulse Resp BP BP Pulse Ox 12/30/24 02:00 66 16 100/75 97 12/29/24 23:05 71 16 122/82 97 12/29/24 18:19 65 18 106/60 98 12/29/24 13:27 72 20 122/62 100 12/29/24 10:19 98.0 F 68 20 150/100 99 Intake and Output 12/29/24 12/30/24 12/30/24 22:59 06:59 14:59 Other: Voiding Method Toilet Results 12/29/24 10:42 12/30/24 07:31 Cardiac Enzymes 12/29/24 12/29/24 12/29/24 Range/Units 10:42 10:42 14:32 AST 31 (14-36) U/L Troponin I <0.012 <0.012 (0.000-0.034) ng/mL 12/29/24 Range/Units 17:34 AST (14-36) U/L Troponin I <0.012 (0.000-0.034) ng/mL Coagulation 12/29/24 Range/Units 10:42 PT 10.1 (10.0-12.5) sec APTT 25.5 (22.0-30.0) sec Lipids 12/29/24 Range/Units 17:34 Triglycerides 173.00 H (0.00-149.00) mg/dL Cholesterol 231.00 H (0.00-200.00) mg/dL HDL Cholesterol 40.60 (40.00-60.00) mg/dL Cholesterol/HDL Ratio 5.69 Ratio CBC 12/29/24 Range/Units 10:42 WBC 8.03 (4.50-10.00) 10*3/uL RBC 4.66 (4.10-5.20) 10*6/uL Hgb 13.7 (12.0-15.0) g/dL Hct 41.5 (37.2-46.3) % Plt Count 367 (140-440) 10*3/uL Comprehensive Metabolic Panel 12/29/24 12/30/24 Range/Units 10:42 07:31 Sodium 139 139 (137-145) mmol/L Potassium 4.5 4.4 (3.5-5.1) mmol/L Chloride 104 107 (98-107) mmol/L Carbon Dioxide 27 25 (22-30) mmol/L BUN 14 14 (7-17) mg/dL Creatinine 0.82 0.75 (0.52-1.04) mg/dL Glucose 97 106 H (74-99) mg/dL Calcium 9.7 9.4 (8.4-10.2) mg/dL AST 31 (14-36) U/L ALT 38 H (4-34) U/L Alkaline Phosphatase 124 (38-126) U/L Total Protein 7.2 (6.3-8.2) g/dL Albumin 3.9 (3.5-5.0) g/dL Current Medications Generic Name Dose Route Start Last Admin Trade Name Freq PRN Reason Stop Dose Admin Acetaminophen 650 mg 12/29/24 22:39 12/29/24 23:02 Acetaminophen Tab 325 Mg Tab PO 650 mg Q6HR PRN Administration Fever and/ or Pain Aspirin 325 mg 12/30/24 09:00 Aspirin 325 Mg Tab PO DAILY ALEX Benztropine Mesylate 1 mg 12/30/24 09:00 Benztropine Mesylate 1 Mg Tab PO BID ALEX Buspirone HCl 30 mg 12/30/24 09:00 Buspirone Hcl 10 Mg Tab PO BID ALEX Famotidine 20 mg 12/30/24 09:00 Famotidine 20 Mg/2 Ml Vial IV Q12HR ALEX Gabapentin 400 mg 12/30/24 07:19 Gabapentin 400 Mg Cap PO TID PRN Pain Heparin Sodium (Porcine) 5,000 unit 12/30/24 09:00 Heparin Sodium,Porcine 5,000 Unit/Ml 1 Ml Vial SQ Q12HR ALEX Dobutamine HCl/Dextrose 500 mg 250 mls @ 40.143 mls/hr 12/30/24 08:58 / IV Solution IV 12/30/24 12:58 .Q6H14M PRN Per Protocol Protocol 10 MCG/KG/MIN Lamotrigine 100 mg 12/30/24 09:00 Lamotrigine 100 Mg Tab PO BID [facility] Nitroglycerin 0.4 mg 12/29/24 14:23 Nitroglycerin Sl Tabs 0.4 Mg Tab SUBLINGUAL Q5M PRN Chest Pain Sertraline HCl 200 mg 12/30/24 09:00 Sertraline 100 Mg Tab PO DAILY [facility] Intake and Output 12/29/24 12/30/24 12/30/24 22:59 06:59 14:59 Other: Voiding Method Toilet 12/29/24 10:42 12/30/24 07:31
[2024-12-30] MEDS: ASPIRIN 325 MG TAB PO SCH (09:42)
[2024-12-30] MEDS: busPIRone HCl 10 MG TAB PO SCH (09:43)
[2024-12-30] MEDS: GABAPENTIN 400 MG CAP PO PRN (09:43)
[2024-12-30] MEDS: HEPARIN SODIUM,PORCINE 5,000 UNIT/ML 1 ML VIAL SQ SCH (09:44)
[2024-12-30] MEDS: lamoTRIgine 100 MG TAB PO SCH (09:44)
[2024-12-30] MEDS: FAMOTIDINE 20 MG/2 ML VIAL IV SCH (09:44)
[2024-12-30] MEDS: SERTRALINE 100 MG TAB PO SCH (09:45)
[2024-12-30] MEDS: BENZTROPINE MESYLATE 1 MG TAB PO SCH (12:08)
--- NOTE | 2024-12-30 12:23 | CA ---
Dobutamine Stress Echocardiogram Report Bethany Lozano Age: 39 Gender: F : 1985 Exam Date: 12/30/2024 10:50 Exam Location: [facility] Ordering Physician: Cullen Boykin MD ([email or web address]) Referring Physician: BISI,, Kiln Stacker: Gemma Trejo RDCS Technologist: Ht (in): 64 Wt (lb): 295 Procedure CPT: Indication: angina pectoris cannot exercise ICD-9 Codes: Rhythm: Patient History: CHEST PAIN, DIFFICULTY IN BREATHING, PALPITATIONS, ANGINA, NUMBNESS IN FACE/NECK, HYPERCHOLESTEROLEMIA, FAMILY HX OF HEART DISEASE, PRIOR [place] Cardiac Medications: SEE CHART,,,,, Medications in past 24 hours: Contrast: N/A Total Dose (mL): Stress Results Protocol: Dobutamine Peak Dose (???g/kg/min): 40 Duration (min:sec): Atropine:(mg) Target HR: 153 Double Product: [id number] Resting HR: 73 Resting BP: 124 / 99 Peak HR: 153 Peak BP: 182 / 91 Max Predicted HR: 180 85 % Max Predicted HR Stress Summary: BP Response: Reason for Termination: Target HR Cardiac Symptoms: NO SYMPTOMS ECG Analysis Resting EKG: Normal sinus rhythm Stress EKG: No significant ST-T wave changes that are concerning for ischemia Arrhythmia: There were no sustained arrhythmias or ectopic beats noted during the stress test Echo Analysis Base Echo Analysis: Normal resting global LV size and systolic function. No obvious regional wall motion abnormality at rest Low Echo Anaylsis: Normal augmentation of global and segmental systolic function with no stress-induced regional wall motion normality Peak Echo Analysis: Normal augmentation of global and segmental systolic function with no stress-induced regional wall motion normality Recovery Echo: No obvious regional wall motion abnormality during recovery phase MEASUREMENTS (Male/Female) Normal Values CONCLUSIONS Overall low probability for severe obstructive CAD Nonischemic ECG and echocardiographic response to dobutamine infusion Normal hemodynamic and clinical response to dobutamine infusion Dr Cullen Boykin (Electronically Signed) Final Date: 30 December 2024 12:23
--- NOTE | 2024-12-30 12:26 | CA ---
Transthoracic Echo Report Name: Bethany Lozano Age: 39 Gender: F : 1985 Exam Date: 12/30/2024 10:37 Exam Location: [place] [facility] Ht (in): 64 Wt (lb): 295 Ordering Physician: Cullen Boykin MD ([id number]) Attending/Referring Phys: Circuit Board Drafter Gemma Trejo RDCS Procedure CPT: Indications: cardiomyopathy Cardiac Hx: Technical Quality: Fair Contrast 1: Total Dose (mL): Contrast 2: Total Dose (mL): MEASUREMENTS (Male / Female) Normal Values 2D ECHO LV Diastolic Diameter PLAX 4.6 cm 4.2 - 5.9 / 3.9 - 5.3 cm LV Systolic Diameter PLAX 2.9 cm IVS Diastolic Thickness 0.9 cm 0.6 - 1.0 / 0.6 - 0.9 cm LVPW Diastolic Thickness 1.0 cm 0.6 - 1.0 / 0.6 - 0.9 cm LV Relative Wall Thickness 0.4 RV Internal Dim ED PLAX 1.3 cm LA Systolic Diameter LX 3.8 cm 3.0 - 4.0 / 2.7 - 3.8 cm LV Diastolic Volume MOD BP 90.6 cm??? 67 - 155 / 56 - 104 cm??? LV Systolic Volume MOD BP 30.9 cm??? 22 - 58 / 19 - 49 cm??? LV Ejection Fraction MOD BP 65.8 % >= 55 % LV Cardiac Index MOD BP 1714.2 cm???/min???m??? LV Diastolic Volume MOD 4C 100.5 cm??? LV Systolic Volume MOD 4C 34.3 cm??? LV Ejection Fraction MOD 4C 65.9 % LV Cardiac Index MOD 4C 1900.4 cm???/min???m??? LV Diastolic Length 4C 6.9 cm LV Systolic Length 4C 5.8 cm LV Diastolic Volume MOD 2C 81.8 cm??? LV Systolic Volume MOD 2C 25.8 cm??? LV Ejection Fraction MOD 2C 68.5 % LV Cardiac Index MOD 2C 1609.0 cm???/min???m??? LV Diastolic Length 2C 6.9 cm LV Systolic Length 2C 5.3 cm M-MODE Aortic Root Diameter MM 2.6 cm LA Systolic Diameter MM 3.7 cm LA Ao Ratio MM 1.4 AV Cusp Separation MM 1.8 cm DOPPLER Mitral E Point Velocity 92.3 cm/s Mitral A Point Velocity 66.7 cm/s Mitral E to A Ratio 1.4 MV Deceleration Time 225.0 ms MV E' Velocity 9.6 cm/s Mitral E to MV E' Ratio 9.6 TR Peak Velocity 221.9 cm/s TR Peak Gradient 19.7 mmHg FINDINGS Left Ventricle Left ventricular ejection fraction is estimated at 55-60 %. Mildly increased posterior wall thickness. Normal left ventricular systolic function with no obvious regional wall motion abnormalities. Left ventricular cavity size normal. Right Ventricle Normal right ventricular size and function. Right ventricular systolic pressure within normal limits. Right Atrium Normal right atrial size. Left Atrium Mild left atrial dilatation. Mitral Valve Structurally normal mitral valve. Trace to mild mitral regurgitation. No mitral stenosis. Aortic Valve Trileaflet aortic valve. No aortic valve stenosis or regurgitation. Tricuspid Valve Structurally normal tricuspid valve. No tricuspid stenosis. Mild tricuspid regurgitation. Pulmonic Valve Structurally normal pulmonic valve. No pulmonic stenosis. Trace pulmonic regurgitation. Pericardium No pericardial or pleural effusion. Aorta Normal size aortic root and proximal ascending aorta. CONCLUSIONS LVEF 55 to 60% No obvious regional wall motion abnormality No significant valvular dysfunction Normal RV size and systolic function Mild left atrial dilatation Previewed by: Dr Cullen Boykin (Electronically Signed) Final Date: 30 December 2024 12:25
[2024-12-30 15:26] LABS: Chol/HDL Ratio 5.32 Ratio; LDL Cholesterol,Calculated 179.8 mg/dL (0.0-131.0)
[2024-12-30 16:30] VITALS: BP 147/95; PULSE 82; RESP 20; TEMP 98.2
[2024-12-30] MEDS ORDERED: BENZTROPINE MESYLATE 1 MG TAB PO ONE (22:41)
--- NOTE | 2025-01-08 20:43 | P.DS ---
Providers Date of admission: 12/29/24 14:36 Attending physician: Fede Marsh MD Consults: 12/29/24 14:23 Consult Physician Urgent Consulting Provider: Edin Bhandari Consult Reason/Comments: chest pain Do you want consulting provider notified?: Yes Primary care physician: Mar [facility]ncbar[facility] Course: Diagnoses: Chest pain, could be musculoskeletal as it is associated with some tenderness .cardiac causes ruled out. D-dimer positive but CTA of the chest was negative for PE Anxiety depression schizophrenia hypertension Hyperlipidemia Hospital course: This is a pleasant with past medical history of depression and schizophrenia and anxiety hypertension and hyperlipidemia Presents because of chest pain and little shortness of breath and swelling in the feet as she explains Chest pain is about 5/10 below her left breast going to the back and the area of the left shoulder blade. Feels like shooting pain at times and sometimes dull CT of the chest was negative for PE. Patient evaluated by cardiology team and cleared her for discharge. Patient denies any other new complaints Problems and management plan were discussed with the patient and he verbalized understanding and acceptance Patient was found stable and can be discharged home in guarded prognosis however he needs follow-up as an outpatient. Patient was instructed to follow up with PCP within one week and patient agrees Patient was elected to follow-up with risk reduction counselor Dr. Blunt in 2 weeks and she agrees Physical exam Gen: patient is a AAOx3, no distress CVS: S1-S2, RRR, no murmur Lungs: B/L CTA, no wheezing Abdomen: soft, no distention, no tenderness, positive bowel sounds Extremity: no leg edema or induration Time spent more than 35 minutes Patient Condition at Discharge: Fair Plan - Discharge Summary New Discharge Prescriptions: New Atorvastatin [Lipitor] 20 mg PO DAILY #30 tablet Continue lamoTRIgine [LaMICtal] 100 mg PO BID Benztropine Mesylate [Cogentin] 1 mg PO BID Gabapentin [Neurontin] 400 mg PO TID PRN PRN Reason: Pain estradioL [estradioL (Once Weekly) 0.025 mg Patch] 1 patch TRANSDERM TH Sertraline [Zoloft] 200 mg PO DAILY busPIRone HCL [Buspar] 30 mg PO BID Aripiprazole Lauroxil [Aristada] 441 mg IM Q28D Discontinued Ibuprofen [Motrin] 800 mg PO Q6H PRN PRN Reason: Pain Discharge Medication List Benztropine Mesylate [Cogentin] 1 mg PO BID 09/16/22 [History] Sertraline [Zoloft] 200 mg PO DAILY 09/16/22 [History] busPIRone HCL [Buspar] 30 mg PO BID 09/16/22 [History] lamoTRIgine [LaMICtal] 100 mg PO BID 09/16/22 [History] Aripiprazole Lauroxil [Aristada] 441 mg IM Q28D 12/29/24 [History] Gabapentin [Neurontin] 400 mg PO TID PRN 12/29/24 [History] estradioL [estradioL (Once Weekly) 0.025 mg Patch] 1 patch TRANSDERM TH 12/29/24 [History] Atorvastatin [Lipitor] 20 mg PO DAILY #30 tablet 12/30/24 [Rx] Follow up Appointment(s)/Referral(s): None,Stated [REFERRING] - 1-2 days Edin Bhandari MD [STAFF PHYSICIAN] - 1 Week Activity/Diet/Wound Care/Special Instructions: heart healthy diet activity is restricted till you see your doctor Planned you check for sleep apnea with your doctor Discharge/Stand Alone Forms: Work/School Release, Work/Release Restrictions Form Discharge Disposition: HOME SELF-CARE
== END 2024-12-30 15:42 | disposition home or self-care (01) ==
LOC: EC 10:18 → 6NMEDSUR 14:36
PROVIDERS: ADMIT Internal Medicine; ATTEND Internal Medicine
DX: R07.89 Other chest pain (principal); I10 Essential (primary) hypertension; E78.5 Hyperlipidemia, unspecified; I25.10 Atherosclerotic heart disease of native coronary artery without angina pectoris; F20.9 Schizophrenia, unspecified; F32.A Depression, unspecified; F41.9 Anxiety disorder, unspecified; J45.909 Unspecified asthma, uncomplicated; M79.602 Pain in left arm; R20.0 Anesthesia of skin; R07.2 Precordial pain; R79.89 Other specified abnormal findings of blood chemistry; R22.40 Localized swelling, mass and lump, unspecified lower limb; Z91.148 Patient's other noncompliance with medication regimen for other reason; I25.2 Old myocardial infarction; E66.01 Morbid (severe) obesity due to excess calories; Z68.43 Body mass index [BMI] 50.0-59.9, adult; Z79.899 Other long term (current) drug therapy; Z88.0 Allergy status to penicillin; Z88.8 Allergy status to other drugs, medicaments and biological substances; Z87.891 Personal history of nicotine dependence
CPT/HCPCS: 96376; 96372; 96374; 96375; 99285; 36415; 93005; 93306; 93351; 85379; 83880; 80061 ×2; 80053; 80048; 84443; 83735; 84484; 85025; 85610; 85730; 84703; 83036; 71046; 71275; G0378 ×2; J1644; J1885; Q9967; J1308